=== PATIENT | male | born 1970 | race African-American/Black ===

== ENCOUNTER 2016-05-15 13:56 | Inpatient (IN) | payer OTHER ==
[~2016-05-15] VITALS: Ht 167.6 cm; Wt 76.2 kg
[2016-05-15 14:35] LABS: BASOPHILS % (AUTO) 0.5 % (0.0-2.0); HEMATOCRIT 24.3 % (41-53); HEMOGLOBIN 7.8 g/dL (13.5-17.5); LYMPHOCYTES # (AUTO) 1.3 K/uL (1.0-4.8); MEAN CORPUSCULAR HEMOGLOBIN 30.2 pg (26.0-34.0); MEAN CORPUSCULAR HGB CONC 32.2 G/dL (31.0-37.0); MEAN CORPUSCULAR VOLUME 94 fL (80-100); MONOCYTES # (AUTO) 0.3 K/uL (0.1-1.0); MONOCYTES % (AUTO) 4.7 % (2.0-9.0); NEUTROPHILS % (AUTO) 73.8 % (40.0-70.0); PLATELET COUNT (AUTO) 402 K/uL (150-450); RED BLOOD CELL COUNT(AUTO) 2.58 MIL/uL (4.50-5.90); RED CELL DISTRIBUTION WIDTH 16.9 % (11.5-14.5); WHITE BLOOD COUNT (AUTO) 6.7 K/uL (4.5-11.0)
[2016-05-15 14:45] LABS: ANION GAP 7 mmol/L (8-16); CALCIUM, TOTAL 7.6 mg/dL (8.8-10.5); CARBON DIOXIDE 32 mmol/L (22-29); CHLORIDE 104 mmol/L (98-107); CREATININE 0.79 mg/dL (0.60-1.30); GLOMERULAR FILTR. RATE CALC > 60 mL/min (>60); POTASSIUM 3.3 mmol/L (3.5-5.1); SODIUM SERUM 143 mmol/L (136-145); UREA NITROGEN, BLOOD 27 mg/dL (7-18)
[2016-05-15] MEDS ORDERED: NITROGLYCERIN 2% (1 GM=INCH) PACKET TP ONE (14:45)
[2016-05-15] MEDS ORDERED: SODIUM CHLORIDE 0.9% 1,000 ML IV ONE (14:45)
[2016-05-15] MEDS ORDERED: ASPIRIN 81 MG CHEWABLE TABLET PO ONE (14:45)
[2016-05-15 14:51] LABS: ALANINE AMINOTRANSFERASE 22 U/L (12-78); ALBUMIN 3.1 g/dL (3.4-5.0); ASPARTATE AMINOTRANSFERASE 12 U/L (15-37); BILIRUBIN,TOTAL 0.3 mg/dL (0.1-1.0); TOTAL PROTEIN, SERUM 6.3 g/dL (6.4-8.2)
[2016-05-15] MEDS ORDERED: POTASSIUM CHLORIDE 20 MEQ ER TABLET PO ONE (15:15)
[2016-05-15] MEDS ORDERED: MORPHINE SULFATE 4 MG/ML SYRINGE IVP ONE (15:45)
[2016-05-15] MEDS ORDERED: 0.9% SODIUM CHLORIDE 10 ML SYRINGE IVP PRN (17:30)
[2016-05-15] MEDS ORDERED: ONDANSETRON HCL 4 MG/2 ML VIAL IVP PRN ×2 (17:30→21:00)
[2016-05-15] MEDS ORDERED: ACETAMINOPHEN 325 MG TABLET PO PRN (17:30)
[2016-05-15 17:56] VITALS: BP 103/46
[2016-05-15] MEDS ORDERED: LISI-662 PO (18:26)
[2016-05-15] MEDS ORDERED: ASPI81 PO (18:26)
[2016-05-15] MEDS ORDERED: HYD25 PO (18:26)
[2016-05-15] MEDS ORDERED: FLUO-191 PO (18:26)
[2016-05-15] MEDS ORDERED: HYDR25TA84 PO (18:26)
[2016-05-15] MEDS ORDERED: HYDR25TA PO (18:26)
[2016-05-15 19:37] VITALS: BP 95/53
[2016-05-15] MEDS ORDERED: OxyCODONE HCL/ACETAMINOPHEN 5-325 MG TABLET PO PRN (21:00)
[2016-05-15] MEDS ORDERED: ZOLPIDEM TARTRATE 10 MG TABLET PO PRN (21:00)
[2016-05-15] MEDS: HydrALAZINE HCL 25 MG TABLET PO SCH (21:00)
[2016-05-15] MEDS ORDERED: MORPHINE SULFATE 2 MG/ML SYRINGE IVP PRN (21:15)
[2016-05-15 21:20] VITALS: BP 81/40
[2016-05-15] MEDS ORDERED: SODIUM CHLORIDE 0.9% 500 ML IV ONE (22:00)
[2016-05-15] MEDS: HEPARIN SODIUM,PORCINE 5,000 UNITS/ML VIAL SQ SCH (23:30)
[2016-05-15 23:57] VITALS: BP 92/50
[2016-05-16] VITALS (7 sets, daily range): BP systolic 94–132; BP diastolic 47–69
[2016-05-16] MEDS: ACETAMINOPHEN 325 MG TABLET PO PRN ×2 (03:57→08:31)
[2016-05-16 06:50] LABS: BASOPHILS % (AUTO) 0.3 % (0.0-2.0); EOSINOPHILS % (AUTO) 0.2 % (1.0-6.0); LYMPHOCYTES # (AUTO) 1.6 K/uL (1.0-4.8); LYMPHOCYTES % (AUTO) 18.8 % (22.0-44.0); MEAN CORPUSCULAR HEMOGLOBIN 31.6 pg (26.0-34.0); MEAN CORPUSCULAR HGB CONC 33.4 G/dL (31.0-37.0); MEAN CORPUSCULAR VOLUME 95 fL (80-100); MONOCYTES # (AUTO) 0.4 K/uL (0.1-1.0); MONOCYTES % (AUTO) 4.8 % (2.0-9.0); NEUTROPHILS # (AUTO) 6.5 K/uL (1.8-7.7); NEUTROPHILS % (AUTO) 75.9 % (40.0-70.0); PLATELET COUNT (AUTO) 330 K/uL (150-450); RED BLOOD CELL COUNT(AUTO) 1.75 MIL/uL (4.50-5.90); RED CELL DISTRIBUTION WIDTH 16.6 % (11.5-14.5); WHITE BLOOD COUNT (AUTO) 8.6 K/uL (4.5-11.0)
[2016-05-16 07:15] LABS: HEMATOCRIT 16.6 % (41-53); HEMOGLOBIN 5.5 g/dL (13.5-17.5)
[2016-05-16 07:18] LABS: ALANINE AMINOTRANSFERASE 16 U/L (12-78); ALBUMIN 2.5 g/dL (3.4-5.0); ANION GAP 6 mmol/L (8-16); ASPARTATE AMINOTRANSFERASE 12 U/L (15-37); BILIRUBIN,TOTAL 0.1 mg/dL (0.1-1.0); CALCIUM, TOTAL 7.1 mg/dL (8.8-10.5); CARBON DIOXIDE 27 mmol/L (22-29); CHLORIDE 108 mmol/L (98-107); CHOL/HDL RATIO 4.1 (4.2-7.3); CREATININE 0.76 mg/dL (0.60-1.30); GLOMERULAR FILTR. RATE CALC > 60 mL/min (>60); POTASSIUM 3.7 mmol/L (3.5-5.1); SODIUM SERUM 141 mmol/L (136-145); THYROID STIMULATING HORMONE 0.67 uIU/mL (0.36-3.74); UREA NITROGEN, BLOOD 41 mg/dL (7-18)
[2016-05-16 07:19] LABS: IRON, SERUM 146 mcg/dL (50-175); TOTAL IRON BINDING CAPACITY 226 mcg/dL (250-450)
[2016-05-16] MEDS: HEPARIN SODIUM,PORCINE 5,000 UNITS/ML VIAL SQ SCH ×3 (08:00→23:29)
[2016-05-16] MEDS: FLUoxetine HCL 20 MG CAPSULE PO SCH (08:32)
[2016-05-16] MEDS: HYDROCHLOROTHIAZIDE 25 MG TABLET PO SCH (08:32)
[2016-05-16] MEDS: LISINOPRIL 20 MG TABLET PO SCH (08:33)
[2016-05-16] MEDS ORDERED: PANTOPRAZOLE SODIUM 40 MG DR TABLET PO SCH (09:00)
[2016-05-16] MEDS ORDERED: ASPIRIN 81 MG CHEWABLE TABLET PO SCH (09:00)
[2016-05-16] MEDS ORDERED: SODIUM CHLORIDE 0.9% 500 ML IV ONE (10:54)
[2016-05-16] MEDS: HydrALAZINE HCL 25 MG TABLET PO SCH ×3 (14:34→20:36)
[2016-05-17 04:51] VITALS: BP 116/78
[2016-05-17 07:13] LABS: BASOPHILS # (AUTO) 0.04 K/uL (0.00-0.20); BASOPHILS % (AUTO) 0.5 % (0.0-2.0); EOSINOPHILS # (AUTO) 0.14 K/uL (0.00-0.70); HEMATOCRIT 24.4 % (41-53); HEMOGLOBIN 8.1 g/dL (13.5-17.5); LYMPHOCYTES # (AUTO) 2.2 K/uL (1.0-4.8); LYMPHOCYTES % (AUTO) 26.8 % (22.0-44.0); MEAN CORPUSCULAR HEMOGLOBIN 30.5 pg (26.0-34.0); MEAN CORPUSCULAR HGB CONC 33.3 G/dL (31.0-37.0); MEAN CORPUSCULAR VOLUME 92 fL (80-100); MONOCYTES # (AUTO) 0.4 K/uL (0.1-1.0); MONOCYTES % (AUTO) 5.1 % (2.0-9.0); NEUTROPHILS # (AUTO) 5.3 K/uL (1.8-7.7); NEUTROPHILS % (AUTO) 65.9 % (40.0-70.0); PLATELET COUNT (AUTO) 267 K/uL (150-450); RED BLOOD CELL COUNT(AUTO) 2.66 MIL/uL (4.50-5.90); RED CELL DISTRIBUTION WIDTH 17.4 % (11.5-14.5)
[2016-05-17 07:17] VITALS: BP 120/75
[2016-05-17 07:19] LABS: INR 1.1 (0.9-1.1); PROTHROMBIN TIME 11.1 SEC (9.4-11.6)
[2016-05-17 07:24] LABS: ALANINE AMINOTRANSFERASE 20 U/L (12-78); ALBUMIN 2.8 g/dL (3.4-5.0); ANION GAP 7 mmol/L (8-16); ASPARTATE AMINOTRANSFERASE 12 U/L (15-37); BILIRUBIN,TOTAL 0.3 mg/dL (0.1-1.0); CALCIUM, TOTAL 7.7 mg/dL (8.8-10.5); CARBON DIOXIDE 30 mmol/L (22-29); CHLORIDE 105 mmol/L (98-107); CREATININE 0.83 mg/dL (0.60-1.30); GLOMERULAR FILTR. RATE CALC > 60 mL/min (>60); POTASSIUM 3.3 mmol/L (3.5-5.1); SODIUM SERUM 142 mmol/L (136-145); TOTAL PROTEIN, SERUM 5.6 g/dL (6.4-8.2); UREA NITROGEN, BLOOD 11 mg/dL (7-18)
[2016-05-17] MEDS ORDERED: SODIUM CHLORIDE 0.9% 1,000 ML IV ONE ×2 (08:45→09:00)
[2016-05-17] MEDS: LISINOPRIL 20 MG TABLET PO SCH (09:00)
[2016-05-17] MEDS: HYDROCHLOROTHIAZIDE 25 MG TABLET PO SCH (09:00)
[2016-05-17] MEDS: HydrALAZINE HCL 25 MG TABLET PO SCH ×3 (09:00→21:00)
[2016-05-17] MEDS: FLUoxetine HCL 20 MG CAPSULE PO SCH (09:00)
[2016-05-17 09:11] LABS: RBC MORPHOLOGY COMMENT ABNORMAL RBC MORPH
[2016-05-17] MEDS: FOLIC ACID 1 MG TABLET PO SCH ×2 (09:45→21:00)
[2016-05-17] MEDS: CYANOCOBALAMIN 1,000 MCG/ML VIAL IM SCH (09:45)
[2016-05-17] MEDS ORDERED: MEPERIDINE-PF 25 MG/ML SYRINGE IVP PRN (10:00)
[2016-05-17] MEDS ORDERED: HYDROmorphone 2 MG/ML SYRINGE IVP PRN (10:00)
[2016-05-17] MEDS ORDERED: FentaNYL CITRATE-PF 100 MCG/2 ML VIAL IVP PRN (10:00)
[2016-05-17] MEDS ORDERED: BARIUM SULFATE 0.1% SUSPENSION 450 ML BOTTLE ONE (10:09)
[2016-05-17] MEDS ORDERED: IOVERSOL 320 MG/ML 100 ML VIAL ONE (10:09)
[2016-05-17] MEDS: PANTOPRAZOLE SODIUM 80 MG in SODIUM CHLORIDE 0.9% 500 ML IV SCH ×2 (10:38→22:43)
[2016-05-17 11:35] VITALS: BP 146/82
[2016-05-17] MEDS ORDERED: PROPOFOL 1% 20 ML VIAL IVP ONE (12:00)
[2016-05-17 12:22] LABS: HEMATOCRIT 24.8 % (41-53); HEMOGLOBIN 8.3 g/dL (13.5-17.5)
[2016-05-17 15:42] VITALS: BP 131/73
[2016-05-17 19:56] VITALS: BP 124/76
[2016-05-18] VITALS (8 sets, daily range): BP systolic 114–140; BP diastolic 53–76
[2016-05-18 00:13] LABS: HEMATOCRIT 25.9 % (41-53); HEMOGLOBIN 8.5 g/dL (13.5-17.5)
[2016-05-18 07:02] LABS: BASOPHILS % (AUTO) 0.7 % (0.0-2.0); EOSINOPHILS % (AUTO) 2.5 % (1.0-6.0); HEMATOCRIT 25.3 % (41-53); HEMOGLOBIN 8.3 g/dL (13.5-17.5); LYMPHOCYTES # (AUTO) 1.9 K/uL (1.0-4.8); LYMPHOCYTES % (AUTO) 30.1 % (22.0-44.0); MEAN CORPUSCULAR HEMOGLOBIN 30.6 pg (26.0-34.0); MEAN CORPUSCULAR HGB CONC 32.7 G/dL (31.0-37.0); MEAN CORPUSCULAR VOLUME 94 fL (80-100); MONOCYTES # (AUTO) 0.4 K/uL (0.1-1.0); MONOCYTES % (AUTO) 6.2 % (2.0-9.0); NEUTROPHILS # (AUTO) 3.7 K/uL (1.8-7.7); NEUTROPHILS % (AUTO) 60.5 % (40.0-70.0); PLATELET COUNT (AUTO) 272 K/uL (150-450); RED CELL DISTRIBUTION WIDTH 16.8 % (11.5-14.5); WHITE BLOOD COUNT (AUTO) 6.2 K/uL (4.5-11.0)
[2016-05-18] MEDS: PANTOPRAZOLE SODIUM 80 MG in SODIUM CHLORIDE 0.9% 500 ML IV SCH ×2 (08:39→20:06)
[2016-05-18] MEDS: CYANOCOBALAMIN 1,000 MCG/ML VIAL IM SCH (08:40)
[2016-05-18] MEDS: FOLIC ACID 1 MG TABLET PO SCH ×2 (08:45→20:07)
[2016-05-18] MEDS: HydrALAZINE HCL 25 MG TABLET PO SCH ×3 (08:45→21:08)
[2016-05-18] MEDS: HYDROCHLOROTHIAZIDE 25 MG TABLET PO SCH (08:45)
[2016-05-18] MEDS: LISINOPRIL 20 MG TABLET PO SCH (08:46)
[2016-05-18] MEDS: FLUoxetine HCL 20 MG CAPSULE PO SCH (08:46)
[2016-05-18 12:33] LABS: HEMATOCRIT 25.3 % (41-53); HEMOGLOBIN 8.2 g/dL (13.5-17.5)
[2016-05-18 17:52] LABS: GLUCOSE,POINT OF CARE 108 MG/DL (70-110)
[2016-05-18 20:32] LABS: GLUCOSE COMMENT 1 Juice/Food/D50 Given; GLUCOSE,POINT OF CARE 66 MG/DL (70-110)
[2016-05-18] MEDS ORDERED: 0.9% SODIUM CHLORIDE 10 ML SYRINGE IVP PRN (20:45)
[2016-05-18] MEDS: HydrOXYzine HCL 25 MG TABLET PO PRN (21:06)
[2016-05-18 21:17] LABS: GLUCOSE,POINT OF CARE 79 MG/DL (70-110)
[2016-05-18 23:54] LABS: HEMATOCRIT 25.7 % (41-53); HEMOGLOBIN 8.4 g/dL (13.5-17.5)
[2016-05-19 04:30] VITALS: BP 106/65
[2016-05-19 06:11] LABS: BASOPHILS % (AUTO) 0.6 % (0.0-2.0); EOSINOPHILS % (AUTO) 3.1 % (1.0-6.0); HEMATOCRIT 26.6 % (41-53); HEMOGLOBIN 8.8 g/dL (13.5-17.5); LYMPHOCYTES % (AUTO) 29.5 % (22.0-44.0); MEAN CORPUSCULAR HEMOGLOBIN 31.2 pg (26.0-34.0); MEAN CORPUSCULAR HGB CONC 32.9 G/dL (31.0-37.0); MEAN CORPUSCULAR VOLUME 95 fL (80-100); MONOCYTES # (AUTO) 0.4 K/uL (0.1-1.0); MONOCYTES % (AUTO) 6.2 % (2.0-9.0); NEUTROPHILS # (AUTO) 4.1 K/uL (1.8-7.7); NEUTROPHILS % (AUTO) 60.6 % (40.0-70.0); PLATELET COUNT (AUTO) 282 K/uL (150-450); RED BLOOD CELL COUNT(AUTO) 2.81 MIL/uL (4.50-5.90); RED CELL DISTRIBUTION WIDTH 16.6 % (11.5-14.5); WHITE BLOOD COUNT (AUTO) 6.7 K/uL (4.5-11.0)
[2016-05-19 06:12] LABS: GLUCOSE,POINT OF CARE 101 MG/DL (70-110)
[2016-05-19] MEDS: PANTOPRAZOLE SODIUM 80 MG in SODIUM CHLORIDE 0.9% 500 ML IV SCH ×3 (06:42→18:12)
[2016-05-19 07:29] VITALS: BP 116/68
[2016-05-19] MEDS: CYANOCOBALAMIN 1,000 MCG/ML VIAL IM SCH (08:55)
[2016-05-19] MEDS: HYDROCHLOROTHIAZIDE 25 MG TABLET PO SCH (08:56)
[2016-05-19] MEDS: FOLIC ACID 1 MG TABLET PO SCH ×2 (08:56→20:41)
[2016-05-19] MEDS: FLUoxetine HCL 20 MG CAPSULE PO SCH (08:56)
[2016-05-19] MEDS: LISINOPRIL 20 MG TABLET PO SCH (08:56)
[2016-05-19] MEDS: HydrALAZINE HCL 25 MG TABLET PO SCH ×3 (08:56→20:41)
[2016-05-19 11:56] VITALS: BP 125/64
[2016-05-19 12:13] LABS: GLUCOSE,POINT OF CARE 133 MG/DL (70-110)
[2016-05-19 12:19] LABS: HEMATOCRIT 26.7 % (41-53); HEMOGLOBIN 8.8 g/dL (13.5-17.5)
[2016-05-19 15:09] VITALS: BP 118/63
[2016-05-19 17:42] LABS: GLUCOSE,POINT OF CARE 178 MG/DL (70-110)
[2016-05-19 20:15] VITALS: BP 114/57
[2016-05-20] VITALS (8 sets, daily range): BP systolic 110–137; BP diastolic 62–85
[2016-05-20 00:06] LABS: GLUCOSE COMMENT 1 Received Meds; GLUCOSE,POINT OF CARE 136 MG/DL (70-110)
[2016-05-20 00:27] LABS: HEMATOCRIT 25.4 % (41-53); HEMOGLOBIN 8.2 g/dL (13.5-17.5)
[2016-05-20] MEDS: PANTOPRAZOLE SODIUM 80 MG in SODIUM CHLORIDE 0.9% 500 ML IV SCH ×2 (05:13→19:49)
[2016-05-20 05:22] LABS: GLUCOSE COMMENT 1 Received Meds; GLUCOSE,POINT OF CARE 110 MG/DL (70-110)
[2016-05-20 06:35] LABS: BASOPHILS % (AUTO) 0.6 % (0.0-2.0); EOSINOPHILS % (AUTO) 3.7 % (1.0-6.0); HEMATOCRIT 25.2 % (41-53); HEMOGLOBIN 8.2 g/dL (13.5-17.5); LYMPHOCYTES # (AUTO) 1.7 K/uL (1.0-4.8); LYMPHOCYTES % (AUTO) 32.5 % (22.0-44.0); MEAN CORPUSCULAR HEMOGLOBIN 30.6 pg (26.0-34.0); MEAN CORPUSCULAR HGB CONC 32.5 G/dL (31.0-37.0); MEAN CORPUSCULAR VOLUME 94 fL (80-100); MONOCYTES # (AUTO) 0.3 K/uL (0.1-1.0); MONOCYTES % (AUTO) 6.2 % (2.0-9.0); PLATELET COUNT (AUTO) 262 K/uL (150-450); RED BLOOD CELL COUNT(AUTO) 2.68 MIL/uL (4.50-5.90); RED CELL DISTRIBUTION WIDTH 17.4 % (11.5-14.5); WHITE BLOOD COUNT (AUTO) 5.2 K/uL (4.5-11.0)
[2016-05-20] MEDS: CYANOCOBALAMIN 1,000 MCG/ML VIAL IM SCH (07:47)
[2016-05-20] MEDS: FLUoxetine HCL 20 MG CAPSULE PO SCH (07:50)
[2016-05-20] MEDS: FOLIC ACID 1 MG TABLET PO SCH ×2 (07:50→19:50)
[2016-05-20] MEDS: LISINOPRIL 20 MG TABLET PO SCH (07:54)
[2016-05-20] MEDS: HydrALAZINE HCL 25 MG TABLET PO SCH ×3 (07:57→19:50)
[2016-05-20] MEDS: HYDROCHLOROTHIAZIDE 25 MG TABLET PO SCH (07:57)
[2016-05-20 08:29] LABS: ANION GAP 10 mmol/L (8-16); CALCIUM, TOTAL 7.6 mg/dL (8.8-10.5); CARBON DIOXIDE 26 mmol/L (22-29); CHLORIDE 106 mmol/L (98-107); CREATININE 0.82 mg/dL (0.60-1.30); GLOMERULAR FILTR. RATE CALC > 60 mL/min (>60); POTASSIUM 3.3 mmol/L (3.5-5.1); SODIUM SERUM 142 mmol/L (136-145); UREA NITROGEN, BLOOD 6 mg/dL (7-18)
[2016-05-20 08:48] LABS: RBC MORPHOLOGY COMMENT ABNORMAL RBC MORPH
[2016-05-20 09:00] LABS: PROTHROMBIN TIME 10.8 SEC (9.4-11.6)
[2016-05-20] MEDS ORDERED: POTASSIUM CHLORIDE 20 MEQ ER TABLET PO PRN (09:45)
[2016-05-20] MEDS ORDERED: SODIUM CHLORIDE 0.9% 500 ML IV ONE (11:06)
[2016-05-20] MEDS: POTASSIUM CHL 10 MEQ/WATER 50 ML IV PRN ×2 (11:22→12:24)
[2016-05-20 11:42] LABS: GLUCOSE,POINT OF CARE 101 MG/DL (70-110)
[2016-05-20] MEDS ORDERED: RINGERS SOLUTION,LACTATED 1,000 ML IV ONE ×3 (13:00→15:07)
[2016-05-20] MEDS ORDERED: SODIUM CHLORIDE 0.9% 1,000 ML IV ONE (13:03)
[2016-05-20] MEDS ORDERED: HEPARIN SODIUM 1000 UNITS/NS 500 ML ONE (13:32)
[2016-05-20 14:11] LABS: ABG A-A DIFF O2 25.8 mmHg (10-20.0); ABG BASE EXCESS 0.5 mmol/L (-2.0-3.0); ABG PCO2 37 mmHg (35-45); ABG PH 7.441 (7.35-7.450); TEMPERATURE, FAHRENHEIT, BG 98.3 FAHREN (96.0-98.6)
[2016-05-20] MEDS: BUPIVACAINE LIPOSOME/PF 1.3%-13.3MG/ML SUSPENSION 20 ML VIAL INJ ONE ×2 (15:15→18:33)
[2016-05-20] MEDS ORDERED: BUPIVACAINE HCL/PF 0.5% 30 ML VIAL ONE (15:25)
[2016-05-20] MEDS ORDERED: ACETAMINOPHEN 1000 MG/ISO-OSM 100 ML IV ONE (15:26)
[2016-05-20] MEDS ORDERED: HYDROmorphone HCL 50 MG/NS/PF 100 ML IV PRN (16:29)
[2016-05-20] MEDS ORDERED: FentaNYL CITRATE-PF 100 MCG/2 ML VIAL IVP PRN (16:30)
[2016-05-20] MEDS ORDERED: NALBUPHINE HCL 10 MG/ML VIAL IVP PRN (16:30)
[2016-05-20] MEDS ORDERED: NALOXONE HCL 0.4 MG/ML VIAL IVP PRN (16:30)
[2016-05-20] MEDS ORDERED: ZOLPIDEM TARTRATE 5 MG TABLET PO PRN (16:30)
[2016-05-20] MEDS ORDERED: PROMETHAZINE HCL 25 MG/ML VIAL IM PRN ×2 (16:30)
[2016-05-20] MEDS ORDERED: PROMETHAZINE HCL 25 MG RECTAL SUPPOSITORY PR PRN (16:30)
[2016-05-20] MEDS ORDERED: PROMETHAZINE HCL 12.5 MG in SODIUM CHLORIDE 0.9% 50 ML IV PRN (16:30)
[2016-05-20] MEDS ORDERED: MEPERIDINE-PF 25 MG/ML SYRINGE IVP PRN (16:30)
[2016-05-20] MEDS ORDERED: ONDANSETRON HCL 4 MG/2 ML VIAL IVP PRN ×2 (16:30)
[2016-05-20] MEDS ORDERED: METOCLOPRAMIDE HCL 5 MG/ML 2 ML VIAL IVP PRN (16:30)
[2016-05-20] MEDS: HYDROmorphone 2 MG/ML SYRINGE IVP PRN ×2 (17:00→17:10)
[2016-05-20] MEDS ORDERED: HYDROmorphone 2 MG/ML SYRINGE ONE (17:12)
[2016-05-20] MEDS ORDERED: ONDANSETRON HCL 4 MG/2 ML VIAL ONE (17:14)
[2016-05-20 18:51] LABS: GLUCOSE,POINT OF CARE 150 MG/DL (70-110)
[2016-05-20] MEDS: OXYGEN THERAPY IH SCH (19:50)
[2016-05-20] MEDS: DEXTROSE 5%-0.45% SODIUM CHL 1,000 ML IV PRN (22:05)
[2016-05-20] MEDS: ACETAMINOPHEN 1000 MG/ISO-OSM 100 ML IV SCH (22:06)
[2016-05-20 22:42] LABS: GLUCOSE,POINT OF CARE 133 MG/DL (70-110)
[2016-05-21] MEDS: DiphenhydrAMINE HCL 50 MG/ML VIAL IVP PRN ×4 (00:33→22:56)
[2016-05-21] MEDS: ACETAMINOPHEN 1000 MG/ISO-OSM 100 ML IV SCH ×3 (04:09→16:50)
[2016-05-21 05:04] VITALS: BP 121/72
[2016-05-21] MEDS: PANTOPRAZOLE SODIUM 80 MG in SODIUM CHLORIDE 0.9% 500 ML IV SCH ×3 (05:30→20:00)
[2016-05-21 06:17] LABS: BASOPHILS % (AUTO) 0.1 % (0.0-2.0); EOSINOPHILS % (AUTO) 0.1 % (1.0-6.0); HEMATOCRIT 26.5 % (41-53); HEMOGLOBIN 8.7 g/dL (13.5-17.5); LYMPHOCYTES % (AUTO) 8.1 % (22.0-44.0); MEAN CORPUSCULAR HEMOGLOBIN 30.9 pg (26.0-34.0); MEAN CORPUSCULAR HGB CONC 32.7 G/dL (31.0-37.0); MEAN CORPUSCULAR VOLUME 95 fL (80-100); MONOCYTES # (AUTO) 0.5 K/uL (0.1-1.0); MONOCYTES % (AUTO) 4.3 % (2.0-9.0); NEUTROPHILS # (AUTO) 10.8 K/uL (1.8-7.7); PLATELET COUNT (AUTO) 276 K/uL (150-450); RED CELL DISTRIBUTION WIDTH 17.2 % (11.5-14.5); WHITE BLOOD COUNT (AUTO) 12.4 K/uL (4.5-11.0)
[2016-05-21 06:43] LABS: NEUTROPHILS % (AUTO) 87.4 % (40.0-70.0); RBC MORPHOLOGY COMMENT ABNORMAL RBC MORPH
[2016-05-21 07:13] LABS: ALANINE AMINOTRANSFERASE 19 U/L (12-78); ALBUMIN 2.9 g/dL (3.4-5.0); ANION GAP 6 mmol/L (8-16); ASPARTATE AMINOTRANSFERASE 14 U/L (15-37); BILIRUBIN,TOTAL 0.6 mg/dL (0.1-1.0); CALCIUM, TOTAL 7.4 mg/dL (8.8-10.5); CARBON DIOXIDE 28 mmol/L (22-29); CHLORIDE 107 mmol/L (98-107); CREATININE 0.78 mg/dL (0.60-1.30); GLOMERULAR FILTR. RATE CALC > 60 mL/min (>60); POTASSIUM 4.1 mmol/L (3.5-5.1); SODIUM SERUM 141 mmol/L (136-145); TOTAL PROTEIN, SERUM 5.8 g/dL (6.4-8.2); UREA NITROGEN, BLOOD 8 mg/dL (7-18)
[2016-05-21 07:43] VITALS: BP 147/75
[2016-05-21] MEDS: HYDROCHLOROTHIAZIDE 25 MG TABLET PO SCH ×2 (08:02→09:00)
[2016-05-21] MEDS: FOLIC ACID 1 MG TABLET PO SCH ×3 (08:02→20:35)
[2016-05-21] MEDS: LISINOPRIL 20 MG TABLET PO SCH ×2 (08:02→09:00)
[2016-05-21] MEDS: FLUoxetine HCL 20 MG CAPSULE PO SCH ×2 (08:03→09:00)
[2016-05-21] MEDS: CYANOCOBALAMIN 1,000 MCG/ML VIAL IM SCH (08:03)
[2016-05-21] MEDS: OXYGEN THERAPY IH SCH ×2 (08:03→20:35)
[2016-05-21] MEDS: HydrALAZINE HCL 25 MG TABLET PO SCH ×4 (08:03→20:35)
[2016-05-21 11:19] VITALS: BP 141/65
[2016-05-21] MEDS ORDERED: MIDAZOLAM HCL 2 MG/2 ML VIAL IVP ONE (12:00)
[2016-05-21] MEDS ORDERED: SUCCINYLCHOLINE CHLORIDE 20 MG/ML 10 ML VIAL IVP ONE (12:00)
[2016-05-21] MEDS ORDERED: ROCURONIUM BROMIDE 10 MG/ML 5 ML VIAL IVP ONE (12:00)
[2016-05-21] MEDS ORDERED: HYDROmorphone 2 MG/ML SYRINGE IVP ONE (12:00)
[2016-05-21] MEDS ORDERED: FentaNYL CITRATE-PF 250 MCG/5 ML VIAL IVP ONE (12:00)
[2016-05-21 12:17] LABS: GLUCOSE,POINT OF CARE 129 MG/DL (70-110)
[2016-05-21 15:09] VITALS: BP 111/70
[2016-05-21 17:56] LABS: GLUCOSE,POINT OF CARE 111 MG/DL (70-110)
[2016-05-21 17:56] LABS: GLUCOSE,POINT OF CARE 106 MG/DL (70-110)
[2016-05-21 19:40] VITALS: BP 135/73
[2016-05-21 23:01] VITALS: BP 137/81
[2016-05-22 02:06] LABS: GLUCOSE,POINT OF CARE 96 MG/DL (70-110)
[2016-05-22] MEDS: DEXTROSE 5%-0.45% SODIUM CHL 1,000 ML IV PRN (03:42)
[2016-05-22] MEDS: PANTOPRAZOLE SODIUM 80 MG in SODIUM CHLORIDE 0.9% 500 ML IV SCH ×2 (03:42→14:41)
[2016-05-22 03:58] VITALS: BP 141/82
[2016-05-22 06:03] LABS: BASOPHILS % (AUTO) 0.3 % (0.0-2.0); EOSINOPHILS % (AUTO) 0.3 % (1.0-6.0); HEMATOCRIT 26.3 % (41-53); HEMOGLOBIN 8.6 g/dL (13.5-17.5); LYMPHOCYTES # (AUTO) 0.8 K/uL (1.0-4.8); LYMPHOCYTES % (AUTO) 9.3 % (22.0-44.0); MEAN CORPUSCULAR HEMOGLOBIN 30.7 pg (26.0-34.0); MEAN CORPUSCULAR HGB CONC 32.7 G/dL (31.0-37.0); MEAN CORPUSCULAR VOLUME 94 fL (80-100); MONOCYTES # (AUTO) 0.5 K/uL (0.1-1.0); NEUTROPHILS # (AUTO) 7.3 K/uL (1.8-7.7); NEUTROPHILS % (AUTO) 84.1 % (40.0-70.0); PLATELET COUNT (AUTO) 235 K/uL (150-450); RED CELL DISTRIBUTION WIDTH 15.8 % (11.5-14.5); WHITE BLOOD COUNT (AUTO) 8.7 K/uL (4.5-11.0)
[2016-05-22 07:08] LABS: ALANINE AMINOTRANSFERASE 16 U/L (12-78); ALBUMIN 2.7 g/dL (3.4-5.0); ANION GAP 6 mmol/L (8-16); ASPARTATE AMINOTRANSFERASE 15 U/L (15-37); BILIRUBIN,TOTAL 0.5 mg/dL (0.1-1.0); CALCIUM, TOTAL 7.6 mg/dL (8.8-10.5); CARBON DIOXIDE 28 mmol/L (22-29); CHLORIDE 103 mmol/L (98-107); CREATININE 0.71 mg/dL (0.60-1.30); GLOMERULAR FILTR. RATE CALC > 60 mL/min (>60); POTASSIUM 3.6 mmol/L (3.5-5.1); SODIUM SERUM 137 mmol/L (136-145); UREA NITROGEN, BLOOD 4 mg/dL (7-18)
[2016-05-22] MEDS: OXYGEN THERAPY IH SCH ×2 (08:00→20:38)
[2016-05-22 08:05] VITALS: BP 124/72
[2016-05-22 08:16] LABS: GLUCOSE,POINT OF CARE 105 MG/DL (70-110)
[2016-05-22] MEDS: LISINOPRIL 20 MG TABLET PO SCH (09:00)
[2016-05-22] MEDS: HydrALAZINE HCL 25 MG TABLET PO SCH ×3 (09:00→20:43)
[2016-05-22] MEDS: HYDROCHLOROTHIAZIDE 25 MG TABLET PO SCH (09:00)
[2016-05-22] MEDS: FOLIC ACID 1 MG TABLET PO SCH ×2 (09:00→20:40)
[2016-05-22] MEDS: FLUoxetine HCL 20 MG CAPSULE PO SCH (09:00)
[2016-05-22] MEDS ORDERED: DiphenhydrAMINE HCL 50 MG/ML VIAL IVP PRN (09:15)
[2016-05-22] MEDS: DiphenhydrAMINE HCL 50 MG/ML VIAL IVP PRN (09:23)
[2016-05-22] MEDS: CYANOCOBALAMIN 1,000 MCG/ML VIAL IM SCH (09:23)
[2016-05-22] MEDS ORDERED: DIATRIZOATE MEGLU/SOD 660/100 MG/ML 120 ML BOTTLE ONE (09:34)
[2016-05-22 11:40] VITALS: BP 135/79
[2016-05-22 12:42] LABS: GLUCOSE,POINT OF CARE 93 MG/DL (70-110)
[2016-05-22] MEDS ORDERED: MAGNESIUM SULFATE 1 GM in DEXTROSE 5%-WATER 50 ML IV ONE (12:45)
[2016-05-22 16:15] VITALS: BP 126/74
[2016-05-22 19:01] LABS: GLUCOSE,POINT OF CARE 134 MG/DL (70-110)
[2016-05-22 19:20] VITALS: BP 135/87
[2016-05-22] MEDS: HydrOXYzine HCL 25 MG TABLET PO PRN (20:39)
[2016-05-22 23:48] VITALS: BP 131/71
[2016-05-23] MEDS: PANTOPRAZOLE SODIUM 80 MG in SODIUM CHLORIDE 0.9% 500 ML IV SCH ×2 (01:52→14:14)
[2016-05-23 05:07] LABS: GLUCOSE,POINT OF CARE 108 MG/DL (70-110)
[2016-05-23 05:15] VITALS: BP 133/77
[2016-05-23 06:19] LABS: BASOPHILS % (AUTO) 0.2 % (0.0-2.0); HEMOGLOBIN 8.1 g/dL (13.5-17.5); LYMPHOCYTES # (AUTO) 1.1 K/uL (1.0-4.8); LYMPHOCYTES % (AUTO) 16.2 % (22.0-44.0); MEAN CORPUSCULAR HEMOGLOBIN 30.4 pg (26.0-34.0); MEAN CORPUSCULAR HGB CONC 32.4 G/dL (31.0-37.0); MEAN CORPUSCULAR VOLUME 94 fL (80-100); MONOCYTES # (AUTO) 0.5 K/uL (0.1-1.0); MONOCYTES % (AUTO) 7.4 % (2.0-9.0); NEUTROPHILS # (AUTO) 4.8 K/uL (1.8-7.7); NEUTROPHILS % (AUTO) 74.2 % (40.0-70.0); PLATELET COUNT (AUTO) 253 K/uL (150-450); RED BLOOD CELL COUNT(AUTO) 2.67 MIL/uL (4.50-5.90); RED CELL DISTRIBUTION WIDTH 15.4 % (11.5-14.5); WHITE BLOOD COUNT (AUTO) 6.5 K/uL (4.5-11.0)
[2016-05-23 06:41] LABS: ALANINE AMINOTRANSFERASE 14 U/L (12-78); ALBUMIN 2.4 g/dL (3.4-5.0); ANION GAP 7 mmol/L (8-16); ASPARTATE AMINOTRANSFERASE 13 U/L (15-37); BILIRUBIN,TOTAL 0.5 mg/dL (0.1-1.0); CALCIUM, TOTAL 7.3 mg/dL (8.8-10.5); CARBON DIOXIDE 28 mmol/L (22-29); CHLORIDE 103 mmol/L (98-107); CREATININE 0.73 mg/dL (0.60-1.30); GLOMERULAR FILTR. RATE CALC > 60 mL/min (>60); POTASSIUM 3.2 mmol/L (3.5-5.1); SODIUM SERUM 138 mmol/L (136-145); TOTAL PROTEIN, SERUM 5.8 g/dL (6.4-8.2); UREA NITROGEN, BLOOD 5 mg/dL (7-18)
[2016-05-23 07:26] LABS: GLUCOSE,POINT OF CARE 91 MG/DL (70-110)
[2016-05-23] MEDS: OXYGEN THERAPY IH SCH ×2 (08:00→20:20)
[2016-05-23 08:06] VITALS: BP 131/77
[2016-05-23] MEDS: HydrALAZINE HCL 25 MG TABLET PO SCH ×3 (08:46→20:20)
[2016-05-23] MEDS: LISINOPRIL 20 MG TABLET PO SCH (08:46)
[2016-05-23] MEDS: HYDROCHLOROTHIAZIDE 25 MG TABLET PO SCH (08:46)
[2016-05-23] MEDS: FLUoxetine HCL 20 MG CAPSULE PO SCH (08:46)
[2016-05-23] MEDS: CYANOCOBALAMIN 1,000 MCG/ML VIAL IM SCH (08:47)
[2016-05-23] MEDS: FOLIC ACID 1 MG TABLET PO SCH ×2 (08:47→20:20)
[2016-05-23] MEDS: DiphenhydrAMINE HCL 50 MG/ML VIAL IVP PRN ×2 (10:33→20:06)
[2016-05-23] MEDS ORDERED: MAGNESIUM SULFATE 2 GM in DEXTROSE 5%-WATER 50 ML IV PRN (11:00)
[2016-05-23] MEDS ORDERED: POTASSIUM CHL 10 MEQ/WATER 50 ML IV PRN (11:00)
[2016-05-23] MEDS ORDERED: MAGNESIUM SULFATE 4 GM/WATER 100 ML IV PRN (11:00)
[2016-05-23] MEDS: POTASSIUM CHLORIDE 20 MEQ ER TABLET PO PRN ×2 (11:19→16:47)
[2016-05-23 11:20] VITALS: BP 135/81
[2016-05-23 11:42] LABS: GLUCOSE,POINT OF CARE 122 MG/DL (70-110)
[2016-05-23 15:35] VITALS: BP 111/63
[2016-05-23 18:42] LABS: GLUCOSE,POINT OF CARE 119 MG/DL (70-110)
[2016-05-23] MEDS: DEXTROSE 5%-0.45% SODIUM CHL 1,000 ML IV PRN (18:51)
[2016-05-23 19:22] VITALS: BP 132/74
[2016-05-23] MEDS ORDERED: HYDROCODONE/ACETAMINOPHEN 5-325 MG TABLET PO PRN (21:00)
[2016-05-23 23:18] VITALS: BP 123/67
[2016-05-24] MEDS: PANTOPRAZOLE SODIUM 80 MG in SODIUM CHLORIDE 0.9% 500 ML IV SCH ×3 (01:12→23:19)
[2016-05-24 01:52] LABS: GLUCOSE,POINT OF CARE 121 MG/DL (70-110)
[2016-05-24 04:39] VITALS: BP 125/75
[2016-05-24 06:07] LABS: GLUCOSE,POINT OF CARE 109 MG/DL (70-110)
[2016-05-24 06:10] LABS: BASOPHILS % (AUTO) 0.4 % (0.0-2.0); EOSINOPHILS % (AUTO) 2.8 % (1.0-6.0); HEMATOCRIT 24.5 % (41-53); LYMPHOCYTES # (AUTO) 0.9 K/uL (1.0-4.8); LYMPHOCYTES % (AUTO) 14.2 % (22.0-44.0); MEAN CORPUSCULAR HEMOGLOBIN 30.3 pg (26.0-34.0); MEAN CORPUSCULAR HGB CONC 32.6 G/dL (31.0-37.0); MEAN CORPUSCULAR VOLUME 93 fL (80-100); MONOCYTES # (AUTO) 0.5 K/uL (0.1-1.0); MONOCYTES % (AUTO) 8.3 % (2.0-9.0); NEUTROPHILS # (AUTO) 4.7 K/uL (1.8-7.7); NEUTROPHILS % (AUTO) 74.3 % (40.0-70.0); PLATELET COUNT (AUTO) 268 K/uL (150-450); RED BLOOD CELL COUNT(AUTO) 2.63 MIL/uL (4.50-5.90); RED CELL DISTRIBUTION WIDTH 16.3 % (11.5-14.5); WHITE BLOOD COUNT (AUTO) 6.3 K/uL (4.5-11.0)
[2016-05-24 06:40] LABS: ALANINE AMINOTRANSFERASE 15 U/L (12-78); ALBUMIN 2.4 g/dL (3.4-5.0); ANION GAP 5 mmol/L (8-16); ASPARTATE AMINOTRANSFERASE 12 U/L (15-37); BILIRUBIN,TOTAL 0.3 mg/dL (0.1-1.0); CALCIUM, TOTAL 7.5 mg/dL (8.8-10.5); CARBON DIOXIDE 29 mmol/L (22-29); CHLORIDE 105 mmol/L (98-107); CREATININE 0.81 mg/dL (0.60-1.30); GLOMERULAR FILTR. RATE CALC > 60 mL/min (>60); SODIUM SERUM 139 mmol/L (136-145); TOTAL PROTEIN, SERUM 5.8 g/dL (6.4-8.2); UREA NITROGEN, BLOOD 4 mg/dL (7-18)
[2016-05-24 07:27] VITALS: BP 136/82
[2016-05-24] MEDS: HydrOXYzine HCL 25 MG TABLET PO PRN (08:57)
[2016-05-24] MEDS: CYANOCOBALAMIN 1,000 MCG/ML VIAL IM SCH (08:57)
[2016-05-24] MEDS: FLUoxetine HCL 20 MG CAPSULE PO SCH (08:57)
[2016-05-24] MEDS: LISINOPRIL 20 MG TABLET PO SCH (08:58)
[2016-05-24] MEDS: FOLIC ACID 1 MG TABLET PO SCH ×2 (08:58→20:29)
[2016-05-24] MEDS: HydrALAZINE HCL 25 MG TABLET PO SCH ×3 (08:58→20:34)
[2016-05-24] MEDS: OXYGEN THERAPY IH SCH ×2 (09:00→20:28)
[2016-05-24] MEDS: CLARITHROMYCIN 500 MG TABLET PO SCH ×2 (09:24→20:34)
[2016-05-24] MEDS: AMOXICILLIN TRIHYDRATE 500 MG CAPSULE PO SCH ×2 (09:25→20:35)
[2016-05-24] MEDS: HYDROCHLOROTHIAZIDE 25 MG TABLET PO SCH (09:42)
[2016-05-24 11:30] VITALS: BP 102/49
[2016-05-24 15:03] VITALS: BP 118/67
[2016-05-24] MEDS: POLYETHYLENE GLYCOL 3350 17 GM PACKET PO SCH (16:40)
[2016-05-24 19:42] VITALS: BP 126/78
[2016-05-25 00:33] VITALS: BP 135/64
[2016-05-25 04:00] VITALS: BP 126/60
[2016-05-25 07:20] VITALS: BP 116/59
[2016-05-25 07:30] LABS: BASOPHILS % (AUTO) 0.5 % (0.0-2.0); EOSINOPHILS % (AUTO) 5.1 % (1.0-6.0); HEMATOCRIT 24.8 % (41-53); LYMPHOCYTES # (AUTO) 1.1 K/uL (1.0-4.8); MEAN CORPUSCULAR HEMOGLOBIN 29.7 pg (26.0-34.0); MEAN CORPUSCULAR HGB CONC 32.4 G/dL (31.0-37.0); MEAN CORPUSCULAR VOLUME 92 fL (80-100); MONOCYTES # (AUTO) 0.5 K/uL (0.1-1.0); MONOCYTES % (AUTO) 9.3 % (2.0-9.0); NEUTROPHILS # (AUTO) 3.2 K/uL (1.8-7.7); NEUTROPHILS % (AUTO) 64.1 % (40.0-70.0); PLATELET COUNT (AUTO) 325 K/uL (150-450); RED BLOOD CELL COUNT(AUTO) 2.71 MIL/uL (4.50-5.90); WHITE BLOOD COUNT (AUTO) 5.1 K/uL (4.5-11.0)
[2016-05-25 07:50] LABS: ALANINE AMINOTRANSFERASE 13 U/L (12-78); ALBUMIN 2.5 g/dL (3.4-5.0); ANION GAP 10 mmol/L (8-16); ASPARTATE AMINOTRANSFERASE 12 U/L (15-37); BILIRUBIN,TOTAL 0.4 mg/dL (0.1-1.0); CALCIUM, TOTAL 7.8 mg/dL (8.8-10.5); CARBON DIOXIDE 26 mmol/L (22-29); CHLORIDE 102 mmol/L (98-107); CREATININE 0.69 mg/dL (0.60-1.30); GLOMERULAR FILTR. RATE CALC > 60 mL/min (>60); POTASSIUM 3.1 mmol/L (3.5-5.1); SODIUM SERUM 138 mmol/L (136-145); UREA NITROGEN, BLOOD 3 mg/dL (7-18)
[2016-05-25] MEDS: OXYGEN THERAPY IH SCH ×2 (08:00→20:00)
[2016-05-25] MEDS: POLYETHYLENE GLYCOL 3350 17 GM PACKET PO SCH (08:20)
[2016-05-25] MEDS: HYDROCHLOROTHIAZIDE 25 MG TABLET PO SCH (08:20)
[2016-05-25] MEDS: AMOXICILLIN TRIHYDRATE 500 MG CAPSULE PO SCH ×2 (08:20→20:29)
[2016-05-25] MEDS: FOLIC ACID 1 MG TABLET PO SCH ×2 (08:20→20:28)
[2016-05-25] MEDS: FLUoxetine HCL 20 MG CAPSULE PO SCH (08:20)
[2016-05-25] MEDS: CLARITHROMYCIN 500 MG TABLET PO SCH ×2 (08:20→20:28)
[2016-05-25] MEDS: CYANOCOBALAMIN 1,000 MCG/ML VIAL IM SCH (08:21)
[2016-05-25] MEDS: HydrALAZINE HCL 25 MG TABLET PO SCH ×3 (08:22→20:29)
[2016-05-25] MEDS: PANTOPRAZOLE SODIUM 80 MG in SODIUM CHLORIDE 0.9% 500 ML IV SCH ×2 (08:31→20:28)
[2016-05-25] MEDS: LISINOPRIL 20 MG TABLET PO SCH (09:00)
[2016-05-25] MEDS: POTASSIUM CHLORIDE 20 MEQ ER TABLET PO PRN (10:44)
[2016-05-25 11:15] VITALS: BP 112/73
[2016-05-25 15:23] VITALS: BP 114/55
[2016-05-25 20:21] VITALS: BP 122/72
[2016-05-26] VITALS (7 sets, daily range): BP systolic 125–149; BP diastolic 64–79
[2016-05-26] MEDS: PANTOPRAZOLE SODIUM 80 MG in SODIUM CHLORIDE 0.9% 500 ML IV SCH (06:10)
[2016-05-26 07:40] LABS: BASOPHILS % (AUTO) 0.7 % (0.0-2.0); EOSINOPHILS % (AUTO) 5.4 % (1.0-6.0); HEMATOCRIT 25.1 % (41-53); HEMOGLOBIN 8.2 g/dL (13.5-17.5); LYMPHOCYTES # (AUTO) 1.3 K/uL (1.0-4.8); LYMPHOCYTES % (AUTO) 24.9 % (22.0-44.0); MEAN CORPUSCULAR HEMOGLOBIN 29.7 pg (26.0-34.0); MEAN CORPUSCULAR HGB CONC 32.6 G/dL (31.0-37.0); MEAN CORPUSCULAR VOLUME 91 fL (80-100); MONOCYTES # (AUTO) 0.5 K/uL (0.1-1.0); MONOCYTES % (AUTO) 9.4 % (2.0-9.0); NEUTROPHILS # (AUTO) 3.1 K/uL (1.8-7.7); NEUTROPHILS % (AUTO) 59.6 % (40.0-70.0); PLATELET COUNT (AUTO) 335 K/uL (150-450); RED BLOOD CELL COUNT(AUTO) 2.75 MIL/uL (4.50-5.90); RED CELL DISTRIBUTION WIDTH 16.4 % (11.5-14.5); WHITE BLOOD COUNT (AUTO) 5.2 K/uL (4.5-11.0)
[2016-05-26 07:57] LABS: ALANINE AMINOTRANSFERASE 13 U/L (12-78); ALBUMIN 2.5 g/dL (3.4-5.0); ANION GAP 10 mmol/L (8-16); ASPARTATE AMINOTRANSFERASE 12 U/L (15-37); BILIRUBIN,TOTAL 0.2 mg/dL (0.1-1.0); CALCIUM, TOTAL 7.9 mg/dL (8.8-10.5); CARBON DIOXIDE 24 mmol/L (22-29); CHLORIDE 106 mmol/L (98-107); CREATININE 0.73 mg/dL (0.60-1.30); GLOMERULAR FILTR. RATE CALC > 60 mL/min (>60); PHOSPHORUS 3.2 mg/dL (2.5-4.9); POTASSIUM 3.3 mmol/L (3.5-5.1); SODIUM SERUM 140 mmol/L (136-145); TOTAL PROTEIN, SERUM 5.9 g/dL (6.4-8.2); UREA NITROGEN, BLOOD 4 mg/dL (7-18)
[2016-05-26] MEDS: HYDROCHLOROTHIAZIDE 25 MG TABLET PO SCH (08:13)
[2016-05-26] MEDS: FOLIC ACID 1 MG TABLET PO SCH ×2 (08:13→20:28)
[2016-05-26] MEDS: CLARITHROMYCIN 500 MG TABLET PO SCH ×2 (08:13→20:28)
[2016-05-26] MEDS: AMOXICILLIN TRIHYDRATE 500 MG CAPSULE PO SCH ×2 (08:13→20:28)
[2016-05-26] MEDS: HydrALAZINE HCL 25 MG TABLET PO SCH ×3 (08:13→20:28)
[2016-05-26] MEDS: LISINOPRIL 20 MG TABLET PO SCH (08:13)
[2016-05-26] MEDS: FLUoxetine HCL 20 MG CAPSULE PO SCH (08:14)
[2016-05-26] MEDS: CYANOCOBALAMIN 1,000 MCG/ML VIAL IM SCH (08:14)
[2016-05-26] MEDS: POLYETHYLENE GLYCOL 3350 17 GM PACKET PO SCH (08:14)
[2016-05-26] MEDS ORDERED: POTASSIUM CHLORIDE 20 MEQ ER TABLET PO ONE (11:15)
[2016-05-26] MEDS ORDERED: MAGNESIUM OXIDE 400 MG TABLET PO ONE (11:15)
[2016-05-26] MEDS: MAGNESIUM OXIDE 400 MG TABLET PO PRN ×3 (11:17→16:01)
[2016-05-26] MEDS: POTASSIUM CHLORIDE 20 MEQ ER TABLET PO PRN ×2 (11:17→17:53)
[2016-05-27 04:00] VITALS: BP 130/81
[2016-05-27 06:54] LABS: BASOPHILS # (AUTO) 0.05 K/uL (0.00-0.20); BASOPHILS % (AUTO) 0.9 % (0.0-2.0); EOSINOPHILS # (AUTO) 0.35 K/uL (0.00-0.70); EOSINOPHILS % (AUTO) 6.02 % (1.0-6.0); HEMATOCRIT 28.7 % (41-53); HEMOGLOBIN 9.6 g/dL (13.5-17.5); LYMPHOCYTES # (AUTO) 1.7 K/uL (1.0-4.8); LYMPHOCYTES % (AUTO) 28.9 % (22.0-44.0); MEAN CORPUSCULAR HEMOGLOBIN 30.1 pg (26.0-34.0); MEAN CORPUSCULAR HGB CONC 33.4 G/dL (31.0-37.0); MEAN CORPUSCULAR VOLUME 90 fL (80-100); MONOCYTES # (AUTO) 0.4 K/uL (0.1-1.0); MONOCYTES % (AUTO) 7.6 % (2.0-9.0); NEUTROPHILS # (AUTO) 3.3 K/uL (1.8-7.7); NEUTROPHILS % (AUTO) 56.7 % (40.0-70.0); PLATELET COUNT (AUTO) 446 K/uL (150-450); RED BLOOD CELL COUNT(AUTO) 3.19 MIL/uL (4.50-5.90); RED CELL DISTRIBUTION WIDTH 16.7 % (11.5-14.5); WHITE BLOOD COUNT (AUTO) 5.8 K/uL (4.5-11.0)
[2016-05-27] MEDS: PANTOPRAZOLE SODIUM 40 MG DR TABLET PO SCH ×2 (06:58→09:04)
[2016-05-27 07:07] LABS: GLUCOSE,POINT OF CARE 96 MG/DL (70-110)
[2016-05-27 07:16] LABS: ALANINE AMINOTRANSFERASE 17 U/L (12-78); ANION GAP 9 mmol/L (8-16); ASPARTATE AMINOTRANSFERASE 13 U/L (15-37); BILIRUBIN,TOTAL 0.3 mg/dL (0.1-1.0); CALCIUM, TOTAL 8.5 mg/dL (8.8-10.5); CARBON DIOXIDE 26 mmol/L (22-29); CHLORIDE 104 mmol/L (98-107); CREATININE 0.75 mg/dL (0.60-1.30); GLOMERULAR FILTR. RATE CALC > 60 mL/min (>60); POTASSIUM 3.8 mmol/L (3.5-5.1); SODIUM SERUM 139 mmol/L (136-145); UREA NITROGEN, BLOOD 4 mg/dL (7-18)
[2016-05-27 07:53] VITALS: BP 129/80
[2016-05-27] MEDS: HYDROCHLOROTHIAZIDE 25 MG TABLET PO SCH (09:02)
[2016-05-27] MEDS: CLARITHROMYCIN 500 MG TABLET PO SCH (09:03)
[2016-05-27] MEDS: HydrALAZINE HCL 25 MG TABLET PO SCH (09:03)
[2016-05-27] MEDS: FLUoxetine HCL 20 MG CAPSULE PO SCH (09:03)
[2016-05-27] MEDS: AMOXICILLIN TRIHYDRATE 500 MG CAPSULE PO SCH (09:03)
[2016-05-27] MEDS: LISINOPRIL 20 MG TABLET PO SCH (09:03)
[2016-05-27] MEDS: CYANOCOBALAMIN 1,000 MCG/ML VIAL IM SCH (09:04)
[2016-05-27] MEDS: FOLIC ACID 1 MG TABLET PO SCH (09:04)
[2016-05-27] MEDS: POLYETHYLENE GLYCOL 3350 17 GM PACKET PO SCH (09:04)
[2016-05-27] MEDS ORDERED: MAGNESIUM OXIDE 400 MG TABLET PO ONE (10:30)
[2016-05-27 11:15] VITALS: BP 155/85
== END 2016-05-27 12:20 | disposition home or self-care (01) | DRG 950 ==
LOC: EMS 13:59 → 5S 16:55 → 6N 05-18 12:53
PROVIDERS: ADMIT Internal Medicine; ATTEND Internal Medicine
PROC: 30233N1 Transfusion of Nonautologous Red Blood Cells into Peripheral Vein, Percutaneous Approach (ICD-10-PCS; 2016-05-16)
PROC: 0DB68ZX Excision of Stomach, Via Natural or Artificial Opening Endoscopic, Diagnostic (ICD-10-PCS; 2016-05-17)
PROC: 0DB60ZZ Excision of Stomach, Open Approach (ICD-10-PCS; 2016-05-20)
PROC: 0D160Z9 Bypass Stomach to Duodenum, Open Approach (ICD-10-PCS; principal; 2016-05-20 14:41)
DX: C49.A2 Gastrointestinal stromal tumor of stomach (principal); I63.9 Cerebral infarction, unspecified; E43 Unspecified severe protein-calorie malnutrition; I11.0 Hypertensive heart disease with heart failure; I95.9 Hypotension, unspecified; I20.0 Unstable angina; D62 Acute posthemorrhagic anemia; I50.30 Unspecified diastolic (congestive) heart failure; E53.8 Deficiency of other specified B group vitamins; K27.9 Peptic ulcer, site unspecified, unspecified as acute or chronic, without hemorrhage or perforation; K92.2 Gastrointestinal hemorrhage, unspecified; B96.81 Helicobacter pylori [H. pylori] as the cause of diseases classified elsewhere; E11.9 Type 2 diabetes mellitus without complications; E87.6 Hypokalemia; Z53.29 Procedure and treatment not carried out because of patient's decision for other reasons; E63.8 Other specified nutritional deficiencies; E83.42 Hypomagnesemia; F32.9 Major depressive disorder, single episode, unspecified; G90.8 Other disorders of autonomic nervous system; K31.9 Disease of stomach and duodenum, unspecified; N30.10 Interstitial cystitis (chronic) without hematuria; R42 Dizziness and giddiness; E88.09 Other disorders of plasma-protein metabolism, not elsewhere classified; K56.7 Ileus, unspecified; R55 Syncope and collapse; Z86.73 Personal history of transient ischemic attack (TIA), and cerebral infarction without residual deficits; Z68.27 Body mass index [BMI] 27.0-27.9, adult; Z83.3 Family history of diabetes mellitus; Z85.00 Personal history of malignant neoplasm of unspecified digestive organ; Z82.49 Family history of ischemic heart disease and other diseases of the circulatory system
CPT/HCPCS: 70450; 74000; 74177; 74247; 82271; 82607; 82746; 82805; 82962; 83540; 83550; 83735; 84100; 84132; 84443; 85014; 85018; 86850; 86900; 86901; 86920; 88304; 88309; 88312; 88342; 93005; 93306; 93880; 96361; 96374; 99285; C9113; C9290; G0238; J0131; J0330; J0690; J1170; J1200; J1644; J2250; J2270; J2405; J2704; J3010; J3420; J3475; J3490; J7030; J7040; J7060; J7120; P9016